=== PATIENT | female | born 1995 | race Two or more races ===

== ENCOUNTER 2021-03-12 21:20 | Emergency (ER) | payer MEDICAID, OTHER ==
[~2021-03-12] VITALS: Ht 170.2 cm; Wt 90.7 kg
[2021-03-12 21:52] VITALS: BP 149/70
== END 2021-03-12 21:52 | disposition left against medical advice (07) ==
LOC: EDBD 21:20 → ER 21:25
DX: F32.9 Major depressive disorder, single episode, unspecified (principal); Z53.21 Procedure and treatment not carried out due to patient leaving prior to being seen by health care provider